=== PATIENT | female | born 1980 | race Caucasian/White ===

== ENCOUNTER 2018-03-06 18:14 | Emergency (ER) | payer OTHER ==
[~2018-03-06] VITALS: Ht 167.6 cm; Wt 90.7 kg
[2018-03-06 18:51] VITALS: BP 104/65
[2018-03-06] MEDS ORDERED: ALBUTEROL 0.083% 2.5 MG/3 ML NEBU INH ONE (21:20)
[2018-03-06] MEDS ORDERED: IPRATROPIUM 0.02% 0.5 MG/2.5 ML NEBU INH ONE (21:20)
[2018-03-06 23:13] VITALS: BP 110/71
== END 2018-03-06 23:11 | disposition home or self-care (01) ==
LOC: MED 18:14
DX: J40 Bronchitis, not specified as acute or chronic (principal)
CPT/HCPCS: 71046; 94640; 94760; 99283; J7613; J7644

== ENCOUNTER 2019-02-28 20:08 | Emergency (ER) | payer OTHER ==
[~2019-02-28] VITALS: Ht 167.6 cm; Wt 96.2 kg
[2019-02-28 20:30] VITALS: BP 130/74
--- NOTE | 2019-02-28 20:33 | NUR ---
PT AMBULATED TO LOBBY WITH STEADY GAIT.
--- NOTE | 2019-02-28 20:44 | NUR ---
INFLUENZA SWAB COLLECTED
--- NOTE | 2019-02-28 21:03 | NUR ---
PT RETURNED FROM XRAY AND TAKEN TO CHAIR B
--- NOTE | 2019-02-28 21:08 | NUR ---
38 Y/O FEMALE PRESENTS TO ED, C/O COUGHING. PT STATES HAVING COUGH 20 DAYS AGO AND WENT TO URGENT CARE. PT RECEIVED BREATHING TX AT URGENT CARE AND HAD SOME RELIEF. COUGH WORSENING "PAST COUPLE OF DAYS". COUGH IS NON PRODUCTIVE. NO FEVER NOTED. PT DENIES ANY N/V/D. PT TOOK TYLENOL 2 HOURS PRIOR COMING TO ED. C/O OF THROAT PAIN 9/10, WORSENING WHILE COUGHING. PT VSS. ERMD AWARE. WILL CONTINUE TO MONITOR.
--- NOTE | 2019-02-28 22:59 | NUR ---
Dr. Arango examining patient.
[2019-02-28 23:21] VITALS: BP 121/77
--- NOTE | 2019-02-28 23:21 | NUR ---
PT DISCHARGED WITH PAPERWORK. EDUCATED PT REGARDING MEDICATIONS AND D/C INSTRUCTIONS. PT VERBALIZED UNDERSTANDING WITH TEACHING. TOLD PT TO FOLLOW UP WITH PCP AND WHEN TO RETURN TO ED. PT AT STABLE CONDITION. ALL QUESTIONS ANSWERED
== END 2019-02-28 23:21 | disposition home or self-care (01) ==
LOC: MED 20:08
DX: J10.1 Influenza due to other identified influenza virus with other respiratory manifestations (principal); J45.909 Unspecified asthma, uncomplicated
CPT/HCPCS: 71045; 81002; 81025; 87804; 99284

== ENCOUNTER 2023-05-24 21:39 | Emergency (ER) | payer OTHER ==
[~2023-05-24] VITALS: Ht 170.2 cm; Wt 90.7 kg
[2023-05-24 21:50] VITALS: BP 114/60; PULSE 96; RESP 19; TEMP 99.8; O2SAT 99
[2023-05-24] MEDS ORDERED: AMPICILLIN/SULBACTAM 3 GM VIAL ONE (23:18)
[2023-05-24] MEDS: NACL 0.9% 1,000 ML IV ONE (23:35)
[2023-05-24] MEDS: AMPICILLIN/SULBACTAM 3 GM in NACL 0.9% 100 ML IV ONE (23:35)
[2023-05-24] MEDS: ACETAMINOPHEN EXTRA STRENGTH 500 MG TAB PO ONE (23:42)
[2023-05-24 23:53] LABS: EOSINOPHILS % (AUTO) 0.1 % (0.0-4.0); HEMATOCRIT 43.4 % (36-48); HEMOGLOBIN 14.8 g/dL (12.0-16.0); LYMPHOCYTES # (AUTO) 0.8 K/uL (2.5-16.5); LYMPHOCYTES % (AUTO) 9.7 % (20.5-51.1); MEAN CORPUSCULAR HEMOGLOBIN 30 pg (27-31); MEAN CORPUSCULAR HGB CONC 34 g/dL (33-37); MEAN CORPUSCULAR VOLUME 87.2 fL (80-94); MONOCYTES # (AUTO) 0.1 K/uL (0.8-1.0); MONOCYTES % (AUTO) 1.7 % (1.7-9.3); NEUTROPHILS # (AUTO) 7.1 K/uL (1.8-7.7); NEUTROPHILS % (AUTO) 88.5 % (42.2-75.2); PLATELET COUNT (AUTO) 352 K/uL (140-450); RED BLOOD CELL COUNT(AUTO) 4.98 MIL/uL (4.20-5.40)
[2023-05-24 23:57] LABS: APPEARANCE,URINE CLEAR (CLEAR); BILIRUBIN,URINE NEGATIVE (NEGATIVE); BLOOD, URINE TRACE-I (NEGATIVE); COLOR,URINE YELLOW (YELLOW); LEUKOCYTE ESTERASE ,URINE NEGATIVE (NEGATIVE); NITRITE, URINE NEGATIVE (NEGATIVE); PROTEIN,URINE NEGATIVE (NEGATIVE); UGLUCOSE NEGATIVE (NEGATIVE); UROBILINOGEN,URINE 0.2 EU/dL (0.2 - 1)
[2023-05-25 00:01] LABS: ANION GAP 12.9 (8-16); CALCIUM 8.1 mg/dL (8.5-10.1); CARBON DIOXIDE 26.1 mmol/L (21-32); CREATININE 0.9 mg/dL (0.6-1.3)
[2023-05-25 00:29] LABS: ALBUMIN 3.8 g/dL (3.4-5.0); BILIRUBIN,DIRECT 0.2 mg/dL (0.0-0.3); TOTAL BILIRUBIN 1.4 mg/dL (0.0-1.0); TOTAL PROTEIN, SERUM 7.7 g/dL (6.4-8.2)
[2023-05-25] MEDS ORDERED: NAPR-54 PO (00:37)
[2023-05-25] MEDS ORDERED: AMOX-1230 PO (00:37)
[2023-05-25] MEDS: MORPHINE SULFATE 4 MG/ML SYR IVP ONE (00:46)
[2023-05-25] MEDS: ONDANSETRON 4 MG/2 ML VIAL IVP ONE (00:59)
[2023-05-25 01:09] VITALS: BP 132/74; PULSE 79; RESP 18; TEMP 101.7; O2SAT 98
== END 2023-05-25 01:10 | disposition home or self-care (01) ==
LOC: MED 21:39
DX: J02.0 Streptococcal pharyngitis (principal); J45.909 Unspecified asthma, uncomplicated; Z79.899 Other long term (current) drug therapy
CPT/HCPCS: 36415; 80048; 80076; 81003; 81025; 83690; 85025; 93005; 96365; 96375; 99285; J0295; J2270; J2405; J7030